=== PATIENT | male | born 2000 | race African-American/Black ===

== ENCOUNTER 2020-04-27 18:53 | Emergency (ER) | payer BC ==
[~2020-04-27] VITALS: Ht 190.5 cm; Wt 159.1 kg
[2020-04-27 18:59] VITALS: TEMP 97.3
[2020-04-27] MEDS ORDERED: IPRATROPIUM BROM3 M1 IH (20:46)
[2020-04-27 21:00] VITALS: BP 132/75; PULSE 120
== END 2020-04-27 21:00 | disposition home or self-care (01) ==
LOC: COL.ER 18:53
DX: J45.901 Unspecified asthma with (acute) exacerbation (principal); F17.200 Nicotine dependence, unspecified, uncomplicated; Z20.828 Contact with and (suspected) exposure to other viral communicable diseases
CPT/HCPCS: J1100